=== PATIENT | female | born 1950 | race Caucasian/White ===

== ENCOUNTER 2018-01-29 08:39 | Outpatient (CLI) | payer BC ==
--- NOTE | 2018-01-29 13:22 | MMO ---
BILATERAL SCREENING MAMMOGRAM: Date: 01/29/18 INDICATION: Annual exam. COMPARISON: Prior screening evaluation dated 12/08/15, 01/09/14, and 04/04/12. Diagnostic evaluations from and 01/12/14 were reviewed. FINDINGS: Interpretation of this exam was assisted with computer-aided detection. The breast parenchyma is heterogeneously dense. There are stable benign-appearing calcifications within the right and left breast. Focal mass within the lower inner aspect of the right breast appears slightly more accentuated on tod ay's examination, but is relatively stable in size measuring 7.9 cm on the current exam, whereas it m easures 7.6 mm on the most recent prior screening evaluation from 2016. There is a new focal asymmetry seen within the posterior retroareolar region on the left MLO projecti on only, which is new from the comparison examination. IMPRESSION: BIRADS 0: Incomplete: Need Additional Imaging Evaluation and/or Prior Mammograms for Comparison Recommend diagnostic mammographic evaluation of the left breast asymmetry seen on the MLO projection only. Ultrasound may be necessary for further evaluation. As a conservative measure, would recommend repeat sonographic evaluation of the more accentuated ju[address] mass seen within the right breast 4 o'clock position. A small cyst was noted within this region on diagnostic evaluation dated 01/12/14, but no abnormality was seen on the diagnostic evaluation on . The lesion in and of itself does not appear significantly appreciably changed in size from e 2015 screening examination, but the margins appear slightly more accentuated than expected for an i sland of breast parenchyma. Diagnostic ultrasound of this region to reevaluate this location is recom mended. The facility will notify patient of need for additional imaging services. POS: [facility]
== END 2018-01-29 08:40 | disposition home or self-care (01) ==
LOC: SCSMAMMO 08:39
PROVIDERS: ATTEND Family Medicine
DX: Z12.31 Encounter for screening mammogram for malignant neoplasm of breast (principal)
CPT/HCPCS: 77067

== ENCOUNTER 2018-02-05 08:39 | Outpatient (CLI) | payer BC | END 2018-02-05 08:40 | disposition home or self-care (01) | LOC: BICMAMMO 08:39 | PROVIDERS: ATTEND Family Medicine | DX: R92.2 Inconclusive mammogram (principal) | CPT/HCPCS: G0279 ==

== ENCOUNTER 2019-01-30 07:53 | Emergency (ER) | payer BC ==
[2019-01-30 09:07] LABS: #Eosinphils 0.1 thou/uL (0.0-0.7); #Lymphocytes 0.8 thou/uL (1.20-3.40); #Monocytes 0.5 thou/uL (0.11-0.59); #Neutrophils 4.5 thou/uL (1.40-6.50); Hemoglobin 8.4 g/dL (12.0-16.0); Mean Corpuscular HGB CONC 28.1 g/dL (32.0-36.0); Mean Corpuscular Hemoglobin 19.5 pg (27.0-31.0); Mean Corpuscular Volume 69.2 fL (78.0-98.0); Mean Platelet Volume 10.3 fL (7.4-10.4); Platelet Count 225 thou/uL (130-400); RBC Distribution Width 18.6 % (11.5-14.5); White Blood Cell (WBC) Count 5.8 thou/uL (4.8-10.8)
[2019-01-30 09:15] LABS: ALT (SGPT) 15 U/L (8-55); AST (SGOT) 21 U/L (5-34); Albumin 4.3 g/dL (3.4-4.8); Alkaline Phosphatase 61 U/L (40-150); Anion Gap 14 mmol/L (10-20); BUN (Urea Nitrogen) 13 mg/dL (9.8-20.1); Bilirubin, Total 0.4 mg/dL (0.2-1.2); Calc. Creatinine Clearance 0 mL/min (70-130); Calcium 9.7 mg/dL (7.8-10.44); Carbon Dioxide 21 mmol/L (23-31); Chloride 111 mmol/L (98-107); Estimated GFR-MDRD 63; Globulin 2.1 g/dL (2.4-3.5); Glucose 97 mg/dL (80-115); Potassium 3.8 mmol/L (3.5-5.1); Protein, Total 6.4 g/dL (6.0-8.3); Sodium 142 mmol/L (136-145)
--- NOTE | 2019-01-30 09:19 | CT ---
CT CERVICAL SPINE NONCONTRAST: DATE: 01/30/2019. HISTORY: A 68-year-old female status post acute cervical trauma from fall. FINDINGS: There are no jumped or perched facets. There is no evidence of acute fracture. The vertebral body h eights are maintained. There is no prevertebral soft tissue swelling. IMPRESSION: No evidence of acute fracture or acute traumatic subluxation. lor [] POS: [facility]
[2019-01-30 09:22] LABS: Hypochromia SLIGHT = 6-15 cells (100X) (0-5/hpf); MDiff Complete? YES; Microcytosis MODERATE=15-30 cells (100X) (0-5/hpf); Ovalocytes SLIGHT = 2-5 cells (100X) (0-1/hpf); Polychromasia SLIGHT = 2-3 cells (100X) (0-2/hpf)
--- NOTE | 2019-01-30 09:22 | CT ---
BRAIN CT WITHOUT IV CONTRAST: HISTORY: Injury secondary to a trip and fall. FINDINGS: Left periorbital and supraorbital soft tissue swelling and subcutaneous hemorrhagic contusion changes . There is some atrophy and chronic white matter ischemic change. There is some generalized ventric ular dilatation with marked focal dilatation of the right occipital lobe and trigone region of uncert ain etiology or significance, this may just be related to occipital lobe volume loss on the right jessie e or asymmetric occipital horns. No mass or acute hemorrhage. Sinuses and mastoids are clear. IMPRESSION: Atrophy and chronic white matter ischemic changes. There is some generalized ventriculomegaly with f ocal enlargement of the right trigone and right occipital horn. No mass or acute hemorrhage. 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 Left periorbital and supraorbital superficial soft tissue injury. POS: [facility]
--- NOTE | 2019-01-30 09:31 | CT ---
FACIAL BONES CT SCAN WITHOUT IV CONTRAST: Date: 01/30/19 HISTORY: Left facial injury following a fall from trauma. FINDINGS: Soft tissue swelling with probable hematoma and contusion noted overlying the left cheek, and infraor bital, supraorbital, and periorbital regions. No evidence for acute fracture or dislocation. Arthrosi s changes are noted of both temporomandibular joints. No fluid within the sinuses. No intraorbital he morrhage or mass. The mandible is intact. Zygomatic arches are intact. IMPRESSION: Left cheek, infraorbital, periorbital, and supraorbital soft tissue swelling/contusion/injury. No fra cture, dislocation, or other significant acute osseous abnormality. Prominent bilateral temporomandib ular joint arthrosis changes. POS: [facility]
--- NOTE | 2019-01-30 10:35 | MRI ---
MRI CERVICAL SPINE WITHOUT CONTRAST: Date: 01/30/19 Multiplanar, multisequential imaging of cervical spine obtained. INDICATION: Fall with neck pain. Correlation made to CT performed earlier this morning which showed no osseous abnormality. FINDINGS: The cervical vertebra maintain height. There are degenerative changes noted with loss of disc space a t C4-5, C5-6, and C6-7. Slight anterolisthesis at C4-5 and mild posterolisthesis at C5-6 is noted john t appears chronic. Posterior disc bulge and spondylosis at C4-5 abuts the anterior cord. Disc bulge a nd spondylosis at C5-6 effaces the anterior subarachnoid space. Mild spondylosis at C6-7 flattens the thecal sac. There is no abnormal edema seen in the cervical vertebra. No abnormal splaying of the spinous process . No edema seen in the interspinous or supraspinous ligamentous complex. Cervical cord signal appears normal on T2 sequence. IMPRESSION: There are degenerative changes of the cervical spine as described. Cord impingement seen at C4-5. No acute injury identified. POS: [facility]
[2019-01-30 11:48] LABS: Bilirubin Negative (Negative); Blood, Urine Negative (Negative); Clarity Clear (Clear); Glucose, Urine (Dipstick) Normal (Negative); Leukocyte Negative Leu/uL (Negative); Nitrite Negative (Negative); Protein, Urine (Dipstick) Negative (Neg-Trace); Urobilinogen Normal mg/dL (Less than 2)
--- NOTE | 2019-01-30 13:02 | RAD ---
RIGHT WRIST 3 VIEWS: Date: 01/30/19 HISTORY: Injury following a trip and fall. FINDINGS: Minimal bony demineralization. Mild degenerative and osteoarthrosis changes, including the trapezium first metacarpal joint. No acute fracture or dislocation. IMPRESSION: Bony demineralization with some degenerative and osteoarthrosis without acute fracture or dislocation . POS: [facility]
--- NOTE | 2019-01-30 13:08 | RAD ---
RIGHT HAND FOUR VIEWS: INDICATIONS: Tripped and fell with right hip pain. FINDINGS: There is scattered IP osteoarthrosis. There is mild first CMC osteoarthrosis. There is mild diffuse osteopenia. No definite displaced fracture is grossly evident. IMPRESSION: No acute osseous abnormality. POS: [facility]
== END 2019-01-30 12:19 | disposition home or self-care (01) ==
LOC: ERS 07:53
DX: S01.412A Laceration without foreign body of left cheek and temporomandibular area, initial encounter (principal); S01.81XA Laceration without foreign body of other part of head, initial encounter; S60.511A Abrasion of right hand, initial encounter; W18.30XA Fall on same level, unspecified, initial encounter; Y93.K1 Activity, walking an animal
CPT/HCPCS: 36415; 70450; 70486; 72125; 72141; 80053; 81003; 84484; 85025; 87086; 93005

== ENCOUNTER 2019-02-21 08:13 | Outpatient (CLI) | payer BC ==
--- NOTE | 2019-02-21 08:58 | MMO ---
Bilateral MAMMO Bilat Diag [facility]. CLINICAL HISTORY: Patient is 68 years old and is seen for diagnostic exam and lump or thickening in the right breast. The patient has no family history of breast cancer. The patient has no personal history of cancer. VIEWS: The views performed were: bilateral craniocaudal with tomosynthesis; bilateral mediolateral oblique with tomosynthesis; and bilateral mediolateral with tomosynthesis. FILMS COMPARED: The present examination has been compared to prior imaging studies performed at [facility] on 01/29/2018 and 02/05/2018, and at [facility] on 02/05/2018. MAMMOGRAM FINDINGS: The breasts are heterogeneously dense, which could obscure a lesion on mammography. Finding 1: There are stable benign appearing calcifications seen in both breasts. Finding 2: The previously described right breast nodule is no longer visualized. There are no suspicious masses, suspicious calcifications, or new areas of architectural distortion. IMPRESSION: THERE IS NO MAMMOGRAPHIC EVIDENCE OF MALIGNANCY. A ROUTINE FOLLOW-UP MAMMOGRAM IN 1 YEAR IS RECOMMENDED. THE RESULTS OF THIS EXAM WERE SENT TO THE PATIENT. ACR BI-RADS Category 2 - Benign finding MAMMOGRAPHY NOTE: 1. A negative mammogram report should not delay a biopsy if a dominant of clinically suspicious mass is present. 2. Approximately 10% to 15% of breast cancers are not detected by mammography. 3. Adenosis and dense breasts may obscure an underlying neoplasm. Reported by: RAHEL NICHOLSON MD Electonically Signed: [id number]
== END 2019-02-21 08:14 | disposition home or self-care (01) ==
LOC: BICMAMMO 08:13
PROVIDERS: ATTEND Family Medicine
DX: N63.10 Unspecified lump in the right breast, unspecified quadrant (principal)
CPT/HCPCS: 77066; G0279